=== PATIENT | female | born 1970 | race Caucasian/White ===

== ENCOUNTER 2018-08-25 11:52 | Emergency (ER) | payer OTHER ==
[~2018-08-25] VITALS: Ht 182.9 cm; Wt 112.0 kg
[~2018-08-25 11:52] MED LIST: ACETAMINOPHEN-1 EAC1 PO; AMOXICILLIN 50500 MG PO; AMOXICILLIN500 M1 PO; ASA5UEC PO; CARISOPRODOL; CIPROFLOXACIN500 M3 OR; CYMBALTA20 MG PO; FLEXERIL PO; HYDROCODON-ACE1 EAC7 PO; IBUPROFEN 800800 M1 PO; LEVAQUIN 750 M750 MG PO; LIDOCAINE VISC100 ML PO; MORPHINE; NAPROSYN375 MG; NOHOMEMEDICATIONS; NORCO 5-325 TA1 EACH PO; PENICILLIN V P500 MG PO; PERCOCET 5-3251 EACH PO; PERCOCET PO; STOOL SOFTENER100 M1 PO; TRAMADOL 50 MG50 MG PO
[2018-08-25] MEDS ORDERED: CYMBALTA20 MG PO (12:11)
[2018-08-25] MEDS ORDERED: NABUMETONE 750750 M1 PO (14:00)
[2018-08-25] MEDS ORDERED: TRAMADOL 50 MG50 MG PO (14:00)
[2018-08-25 14:18] VITALS: BP 114/74
== END 2018-08-25 14:19 | disposition home or self-care (01) ==
LOC: M.ERS 11:52
DX: M25.561 Pain in right knee (principal); R60.0 Localized edema; F17.210 Nicotine dependence, cigarettes, uncomplicated; Z90.49 Acquired absence of other specified parts of digestive tract

== ENCOUNTER 2018-09-12 19:04 | Emergency (ER) | payer OTHER, MEDICAID ==
[~2018-09-12] VITALS: Ht 182.9 cm; Wt 124.7 kg
[~2018-09-12 19:04] MED LIST changes: +NABUMETONE 750750 M1 PO
[2018-09-12] MEDS ORDERED: AMOXICILLIN 50500 MG PO (19:26)
[2018-09-12] MEDS ORDERED: NORCO 7.5-3251 EACH PO (19:26)
[2018-09-12 19:30] VITALS: BP 121/74
== END 2018-09-12 19:30 | disposition home or self-care (01) ==
LOC: M.ERS 19:04
DX: K02.9 Dental caries, unspecified (principal)